=== PATIENT | female | born 1925 | race Caucasian/White ===

== ENCOUNTER → 2016-08-05 | Outpatient (REF) | payer MEDICARE, OTHER ==
[~2016-08-05] MED LIST: ASPI81TA45 OR; CALCCHW12 OR; CALCIUM PLUS PO; CLARITAN PO; COZA50TA18 OR; DEME300T OR; FLAXMIS PO; HYZAAR PO; MECL25TA2 OR; MULTIVIT PO; TRAM50TA2 OR; VALI2TAB OR; ZOLO50TA
== END ==
LOC: M SFHCLACO 11:13
PROVIDERS: ATTEND Physician Assistant
DX: N30.01 Acute cystitis with hematuria (principal)
CPT/HCPCS: 81002; 87086; G0463